=== PATIENT | male | born 1965 | race Caucasian/White ===

== ENCOUNTER 2016-09-12 16:33 | Emergency (ER) | payer OTHER, BC ==
[~2016-09-12] VITALS: Ht 188 cm; Wt 110.5 kg
[~2016-09-12 16:33] MED LIST: VITAMINS
[2016-09-12 16:59] VITALS: BP 142/102; PULSE 87; RESP 16; TEMP 99; O2SAT 95
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
[2016-09-12] MEDS ORDERED: IBUPROFEN 800 MG TAB PO ONE (17:45)
[2016-09-12] MEDS ORDERED: CYCLOBENZAPRINE HCL 10 MG TAB PO ONE (17:45)
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
[2016-09-12] MEDS ORDERED: IBUP800T23 PO (19:01)
[2016-09-12] MEDS ORDERED: CYCL1TAB29 PO (19:01)
== END 2016-09-12 19:15 | disposition home or self-care (01) ==
LOC: PHED 16:33 → PHEFT 19:15
DX: M79.1 Myalgia (principal); V43.52XA Car driver injured in collision with other type car in traffic accident, initial encounter; Y99.8 Other external cause status
CPT/HCPCS: 73080; 99284

== ENCOUNTER → 2017-11-27 | Outpatient (CLI) | payer BC ==
[~2017-11-27] MED LIST changes: +CYCL10TA PO; +IBUP1TAB7 PO; -VITAMINS
--- NOTE | 2017-11-28 13:31 | EKG ---
Date Performed: 11/27/2017 Time Performed: 15:08:30 PTAGE: 51 years EKG: Sinus rhythm NORMAL ECG NO PREVIOUS TRACING DOCTOR: Mainor Sullivan Interpretating Date/Time 11/28/2017 13:30:36
== END ==
LOC: HCAV 14:51
PROVIDERS: ATTEND Surgery
DX: Z01.810 Encounter for preprocedural cardiovascular examination (principal); K42.9 Umbilical hernia without obstruction or gangrene
CPT/HCPCS: 93005

== ENCOUNTER → 2017-12-11 | Day surgery (SDC) | payer BC ==
[~2017-12-11] VITALS: Ht 185.4 cm; Wt 110.4 kg
[~2017-12-11] MED LIST changes: +ACETAMINOPHEN 1000 MG/100 ML 100 ML IV SCH; +BUPIVACAINE/EPINEPHRINE 0.5% PF 10 ML VIAL ONE; +CHLORHEXIDINE GLUCONATE 2 % 1 PACK (2 CLOTHS) TOPICAL PRN; -CYCL10TA PO; +DO NOT ADM ANY ANTICOAGULANT DRUGS PRN; +GLYCOPYRROLATE 1 MG/5 ML SYRINGE IV PUSH ONE; -IBUP1TAB7 PO; +KETOROLAC TROMETHAMINE 30 MG/ML (IVP) VIAL IV PUSH SCH; +KETOROLAC TROMETHAMINE 30 MG/ML (IVP) VIAL ONE; +LACTATED RINGER'S 1000 ML IV PRN; +LIDOCAINE HCL 1% PF 5 ML SYRINGE OTHER ONE; +METOPROLOL TARTRATE 25 MG TAB PO PRN; +METOPROLOL TARTRATE 5 MG/5 ML VIAL IV ONE; +MIDAZOLAM HCL 2 MG/2 ML VIAL ONE; +MORPHINE SULFATE 4 MG/ML INJ IV PUSH PRN; +MORPHINE SULFATE 8 MG/ML INJ ONE; +MULT-65 PO; +NEOSTIGMINE 5 MG/5 ML SYRINGE IV PUSH ONE; +OMEG100046 PO; +ONDANSETRON HCL 4 MG/2 ML VIAL IV PUSH ONE; +ONDANSETRON ODT 4 MG TAB PO PRN; +PHENYLEPH/NS 1000 MCG/10 ML SYR IV ONE; +POVIDONE IODINE 5% (ANTISEPSIS KIT) 4 APPLICATIONS EACH NARE PRN; +PROPOFOL 200 MG/20 ML AMP IV ONE; +ROCURONIUM INJ 50 MG/5 ML SYRINGE IV PUSH ONE; +SACC1CAP3 PO; +SODIUM CHLORID 0.9% 500 ML IV PRN; +UNIS25TA3 PO; +VITA1000 PO; +VITA500T83 PO; +ceFAZolin 2 GM PREMIX 50 ML IV SCH; +oxyCODONE/ACETAMINOPHEN 5 MG/325 MG TAB PO PRN
--- NOTE | 2017-12-11 09:12 | PD.OP ---
cc: Kwabena Alexandre MD; Celestine Bee MD Operative Report Date of Surgery: Dec 11, 2017 Preoperative Diagnosis: (1) Umbilical hernia Postoperative Diagnosis: (1) Umbilical hernia Procedure: Umbilical hernia repair with mesh Anesthesia: General Surgeon: Kwabena Alexandre Knowledge Engineer(s): [facility] Operation and Findings: EBL: 5 cc Operative findings: 2 cm umbilical hernia incarcerated with preperitoneal fat. Procedure in detail: Patient was taken to the operating room placed in supine position. General anesthesia was induced. The abdomen was prepped and draped in usual sterile fashion and surgical timeout was performed to verify correct patient procedure and site. Local anesthetic was injected in the skin and subcutaneous tissue inferior to the umbilicus and in the periumbilical area. A curvilinear incision was made inferior to the umbilicus and dissection carried out through subcutaneous tissue with electrocautery. The dermis of the umbilicus was from the underlying hernia sac. The fascial defect was approximately 2 cm. There is a fair amount of incarcerated preperitoneal fat which was amputated and tied with 3-0 Vicryl ties and placed back into the abdomen. Subcutaneous tissue was cleared using electrocautery surrounding the fascial defect. The fascial defect was closed with simple interrupted 0 Ethibond sutures. There was appropriate hemostasis in the operative field. Next an atrium Prolite mesh was cut to approximately 3 x 3" and placed as an onlay over the repair. This was secured in place with 2-0 Ethibond sutures. The dermis of the umbilicus was secured to the underlying tissues using 3-0 Vicryl suture. Deep dermal 3-0 Vicryl sutures were then placed and the skin closed with subcuticular 4-0 Monocryl. Steri-Strips were applied. A pressure dressing at the umbilicus and abdominal binder were applied. The patient tolerated the procedure well was x-rayed and taken to PACU in stable condition. Kwabena Alexandre MD Dec 11, 2017 09:12
[2017-12-11 11:00] VITALS: BP 143/89; PULSE 50; RESP 16; TEMP 97.3; O2SAT 99
== END | disposition home or self-care (01) ==
LOC: HSDC 06:01
PROVIDERS: ATTEND Surgery
DX: K42.0 Umbilical hernia with obstruction, without gangrene (principal); M62.08 Separation of muscle (nontraumatic), other site; N40.0 Benign prostatic hyperplasia without lower urinary tract symptoms; M51.36 Other intervertebral disc degeneration, lumbar region; K57.30 Diverticulosis of large intestine without perforation or abscess without bleeding; K21.9 Gastro-esophageal reflux disease without esophagitis; E78.5 Hyperlipidemia, unspecified; E66.9 Obesity, unspecified
CPT/HCPCS: 00750; 49587; C1781; J0131; J0690; J1885; J2250; J2270; J2370; J2405; J2710; J3010; J7120